=== PATIENT | female | born 1940 | race African-American/Black ===

== ENCOUNTER → 2024-01-01 | Day surgery (SDC) | payer MEDICARE, MEDICAID ==
[~2024-01-01] VITALS: Ht 172.7 cm; Wt 65.3 kg
[~2024-01-01] MED LIST: ACETAMINOPHEN 325MG TABLET PO PRN; AMLO10TA80 PO; ATROPINE SULFATE 1MG/10ML SYR IV PRN; DIPHENHYDRAMINE 50MG/ML VIAL ONE; FENTANYL CITRATE/PF 50MCG/ML 2ML VIAL ONE; HEPARIN 1000 UNITS/ML 10ML ONE; HYDR25TA PO; IODIXANOL 320MG/ML 100 ML BOTTLE IV ONE; LIDOCAINE HCL 1% 20ML VIAL ONE; LISI20TA31 PO; MAGN400T26 PO; MIDAZOLAM HCL 2 MG/2 ML VIAL ONE; OMEP20TA23 PO; SIMV10TA97 PO; VERAPAMIL HCL 2.5 MG/1 ML 2ML VIAL IV ONE; WARF4TAB71 PO; [UNRECOGNIZED DRUG - OTHER] PO
[2024-01-01 09:41] LABS: HEMATOCRIT. 31.7 % (36.0-48.0); HEMOGLOBIN. 10.4 g/dL (12.0-16.0); MEAN CORPUSCULAR HEMOGLOBIN 28.6 pg (28.0-32.0); MEAN CORPUSCULAR HGB CONC 32.9 g/dL (31.0-37.0); MEAN CORPUSCULAR VOLUME 87.2 fL (81.0-99.0); PLATELET 147 x1000/uL (130-400); RED BLOOD CELL COUNT 3.64 mill/uL (4.2-5.4); RED CELL DISTRIBUTION WIDTH 15.8 % (11.6-14.6); WHITE BLOOD COUNT 3.9 x1000/uL (4.5-11.0)
[2024-01-01 09:43] LABS: DIFFERENTIAL COMMENT 1; POTASSIUM 3.4 mEq/L (3.5-5.1)
[2024-01-01 09:45] LABS: CALCIUM 9.6 mg/dL (8.7-10.4)
[2024-01-01 09:49] LABS: CREATININE 1.1 mg/dL (0.6-1.0); INR 1.1; PROTHROMBIN TIME 12.6 sec (9.6-11.0)
[2024-01-01] MEDS: POTASSIUM CHLORIDE 10MEQ TABLET SR PO NR (10:28)
[2024-01-01] MEDS: SODIUM CHLORIDE 0.45% 500 ML IV ONE (10:28)
[2024-01-01 13:51] LABS: OVALOCYTES 1+; PLATELET ESTIMATE NORMAL
[2024-01-01 13:52] LABS: ANISOCYTOSIS 1+
== END | disposition home or self-care (01) ==
LOC: OR 08:58
PROVIDERS: ATTEND Internal Medicine
DX: I25.110 Atherosclerotic heart disease of native coronary artery with unstable angina pectoris (principal); I08.3 Combined rheumatic disorders of mitral, aortic and tricuspid valves; R94.39 Abnormal result of other cardiovascular function study; I25.2 Old myocardial infarction; I11.0 Hypertensive heart disease with heart failure; I50.9 Heart failure, unspecified; I48.91 Unspecified atrial fibrillation; Z79.01 Long term (current) use of anticoagulants; Z79.899 Other long term (current) drug therapy; Z98.890 Other specified postprocedural states; Z88.0 Allergy status to penicillin
CPT/HCPCS: 93454; 80048; 85025; 85610; 36415; 93306; 93005; C1713; C1893; C1769 ×2; J3010; Q9967; J1200; J1644 ×2; J3490 ×2; J2250; C1887; J8499; 93458; 99152; 99153; G0500